=== PATIENT | male | born 1985 | race Caucasian/White ===

== ENCOUNTER 2018-02-11 18:56 | Emergency (ER) | payer BC ==
[2018-02-11] MEDS ORDERED: hydrOXYzine HCL TAB* 50 MG PO ONE (19:38)
[2018-02-11] MEDS ORDERED: Sertraline* 50 MG TAB PO ONE (19:38)
[2018-02-11 20:12] VITALS: BP 131/78
--- NOTE | 2018-02-11 20:12 | ED ---
Wicho Palma Natalie, scribed for Cody De La Vega MD on 02/11/18 at 1949 . Psychiatric Complaint - HPI Summary HPI Summary: The patient is a 32 y/o M presenting to [facility] c/o feelings of depression and anxiety for the last nine months with worsening in the last few months. The pt states that he's been feeling down and is a failure. He doesn't have motivation to go work, and he's been missing a lot of it. He states the depressive episodes come in cycles, causing him to drink EToH. He states he also drinks EToH because he gets headaches which are relieved by the EToH. He has some EToH in his system currently. He denies CP and SOB. He has tried a few pills of Zoloft as well as melatonin for sleep loss. - History Of Current Complaint Chief Complaint: EDMentalHealth Time Seen by Provider: 02/11/18 19:13 Hx Obtained From: Patient Onset/Duration: Gradual Onset, Lasting Weeks, Still Present Timing: Weeks Severity Initially: Mild Severity Currently: Moderate Character: Depressed, Anxious Aggravating Factor(s): Nothing Alleviating Factor(s): Nothing Associated Signs And Symptoms: Positive: Negative - CP, SOB, Sleep Disturbance Has Suicidal: Denies: Thoughts Has Homicidal: Denies: Thoughts - Allergies/Home Medications Allergies/Adverse Reactions: Allergies Allergy/AdvReac Type Severity Reaction Status Date / Time No Known Allergies Allergy Verified 03/08/15 12:16 PMH/Surg Hx/FS Hx/Imm Hx Endocrine/Hematology History: Denies: Hx Diabetes, Hx Thyroid Disease Cardiovascular History: Denies: Hx Hypercholesterolemia, Hx Hypertension, Hx Pacemaker/ICD, Hx Peripheral Vascular Disease History: Denies: Hx Dialysis, Hx Renal Disease Musculoskeletal History: Denies: Hx Arthritis, Hx Rheumatoid Arthritis, Hx Osteoporosis Sensory History: Denies: Hx Cataracts, Hx Contacts or Glasses, Hx Glaucoma, Hx Hearing Aid Opthamlomology History: Denies: Hx Cataracts, Hx Contacts or Glasses, Hx Glaucoma Neurological History: Denies: Hx Headaches, Hx Seizures, Hx Transient Ischemic Attacks (TIA) Psychiatric History: Denies: Hx Anxiety, Hx Depression, Hx Panic Disorder Infectious Disease History: No Infectious Disease History: Denies: Traveled Outside the [place] in Last 30 Days - Family History Known Family History: Negative: Hypertension, Diabetes - Social History Alcohol Use: None Hx Substance Use: No Substance Use Type: Reports: None Hx Tobacco Use: No Smoking Status (MU): Current Every Day Smoker Review of Systems Negative: Chest Pain Negative: Shortness Of Breath Neurological: Other - sleep loss Positive: Headache Positive: Anxious, Depressed, Other - increased EToH use All Other Systems Reviewed And Are Negative: Yes Physical Exam - Summary Physical Exam Summary: Appearance: Well appearing, no pain distress Skin: warm, dry, reflects adequate perfusion Head/face: normal Eyes: EOMI, BILL ENT: normal Neck: supple, non-tender Respiratory: CTA, breath sounds present Cardiovascular: RRR, pulses symmetrical Abdomen: non-tender, soft Bowel Sounds: present Musculoskeletal: normal, strength/ROM intact Neuro: normal, sensory motor intact, A&Ox3 Triage Information Reviewed: Yes Vital Signs On Initial Exam: Initial Vitals Temp Pulse Resp BP Pulse Ox 98.8 F 125 20 133/89 97 02/11/18 18:57 02/11/18 18:57 02/11/18 18:57 02/11/18 18:57 02/11/18 18:57 Vital Signs Reviewed: Yes Diagnostics - Vital Signs Vital Signs Temp Pulse Resp BP Pulse Ox 02/11/18 18:57 98.8 F 125 20 133/89 97 - Laboratory Lab Statement: Any lab studies that have been ordered have been reviewed, and results considered in the medical decision making process. Course/Dx - Course Course Of Treatment: Patient presents for evaluation of chronic depression without suicidal or homicidal ideation. He states that he would just like referral to be seen outpatient and was wondering about starting medications. He has no family doctor. I discussed this with the mental health evaluators who agree and recommend follow-up with [facility] or [facility]. They also agree starting the patient on Zoloft 50 mg. First dose was given here. He was also given Vistaril to assist with sleep. He will follow-up first thing in the morning at 8:30. - Differential Dx/Clinical Impression Provider Diagnosis: Depression, Anxiety Discharge - Sign-Out/Discharge Documenting (check all that apply): Discharge/Admit/Transfer - Pt will be discharged home. - Discharge Plan Condition: Good Disposition: HOME Prescriptions: hydrOXYzine pamoate [Vistaril] 50 mg PO BEDTIME PRN #30 capsule PRN Reason: Anxiety/Insomnia Sertraline HCl [Zoloft] 50 mg PO DAILY #30 tablet Patient Education Materials: Depression (ED), Anxiety (ED) Referrals: [facility] [Outside] [facility] [Outside] Additional Instructions: Walk-in at [facility] first thing in the morning. [facility] here at the hospital can provide medical follow-up for you as well. Given given referral for primary care physician. The back and drinking. Return if worse, new symptoms or other concerns as discussed. [facility] [address] [place] [address] [phone] Opens at 8:30 AM [facility] [place] [address] [place] [address] [phone] Opens at 8:30 AM - Billing Disposition and Condition Condition: GOOD Disposition: Home The documentation as recorded by the Wicho rosa Natalie accurately reflects the service I personally performed and the decisions made by me, Cody De La Vega MD.
== END 2018-02-11 20:05 | disposition home or self-care (01) ==
LOC: ED 18:56
DX: F41.8 Other specified anxiety disorders (principal); F17.200 Nicotine dependence, unspecified, uncomplicated
CPT/HCPCS: 99282; A9270-GY